=== PATIENT | female | born 1995 | race African-American/Black ===

== ENCOUNTER 2017-09-18 11:15 | Emergency (ER) | payer SELFPAY ==
[~2017-09-18] VITALS: Ht 162.6 cm; Wt 54.0 kg
[2017-09-18] MEDS ORDERED: IBUPROFEN 600MG TABLET PO ONE (13:00)
[2017-09-18 13:30] VITALS: BP 122/85
== END 2017-09-18 13:59 | disposition home or self-care (01) ==
LOC: ER 11:45
DX: S62.325A Displaced fracture of shaft of fourth metacarpal bone, left hand, initial encounter for closed fracture (principal); X58.XXXA Exposure to other specified factors, initial encounter; Y93.89 Activity, other specified; Y92.89 Other specified places as the place of occurrence of the external cause; Y99.8 Other external cause status
CPT/HCPCS: 29125; 73130; 81025; 99284

== ENCOUNTER 2018-01-04 10:20 | Emergency (ER) | payer MEDICAID ==
[~2018-01-04] VITALS: Ht 162.6 cm; Wt 54.0 kg
[2018-01-04] MEDS ORDERED: GABAPENTIN 300MG CAPSULE PO ONE (12:15)
[2018-01-04] MEDS ORDERED: HYDROCODONE/ACETAMINOPHEN 5/325MG TABLET PO ONE (12:15)
[2018-01-04 12:39] VITALS: BP 119/84
== END 2018-01-04 16:58 | disposition home or self-care (01) ==
LOC: ER 10:20
DX: S62.395G Other fracture of fourth metacarpal bone, left hand, subsequent encounter for fracture with delayed healing (principal); X58.XXXD Exposure to other specified factors, subsequent encounter
CPT/HCPCS: 73130; 81025; 99284; Z7610